=== PATIENT | female | born 1955 | race Caucasian/White ===

== ENCOUNTER → 2018-12-24 | Outpatient (CLI) | payer MEDICAID, SELFPAY ==
--- NOTE | 2018-12-24 09:20 | MRI_ITS ---
STUDY: MRI BRAIN WITH AND WITHOUT CONTRAST REASON FOR EXAM: Female, 63 years old. Right-sided hearing loss and facial droop. TECHNIQUE: Standardized multiplanar fat and water weighted pulse sequences were obtained. 18 IV Gadavist was administered for the contrast portion of the examination. COMPARISON: None. FINDINGS: Normal size of the ventricles and extra-axial spaces for the patient's age. There are a limited number of small white matter hyperintensities, distributed throughout the deep white matter tracts of the cerebral hemispheres, consistent with mild chronic white matter ischemic changes. Normal bilateral basal ganglia. Normal thalami. There is no extra-axial fluid accumulation. Normal flow voids within the major intracranial circulation suggesting patency by spin echo criteria. Normal venous enhancement. There is no enhancing intra-axial or extra-axial abnormality. Normal sella turcica, pituitary gland, infundibular stalk, optic chiasm and hypothalamus. Normal tectal plate and pineal gland. Normal midbrain, moira and medulla. Normal cerebellum. Normal basal cisterns. Normal bilateral temporal bones. Normal bilateral internal auditory canals. No demonstrated orbital abnormality, within the constraints of a routine brain study. Normal visualized paranasal sinuses. Normal calvarium and skull base. Normal visualized soft tissue structures. Normal visualized upper cervical spine. MRI/Brain W/WO Contrast IMPRESSION: Normal unenhanced and enhanced MRI of the brain. Mild chronic changes described above. Electronically Signed: Hussein Dumont, at 10:59 EDT Tel , Service support ,
[2018-12-24 10:11] LABS: CREATININE FINGERSTICK 0.8 mg/dL (0.55-1.02); EGFR FINGERSTICK > 60.0000 mL/min (>60)
== END | disposition home or self-care (01) ==
LOC: MRI 09:11
PROVIDERS: Family Provider Family Medicine; PCP Family Medicine; Referring Provider Otolaryngology; Visit Provider Otolaryngology
DX: H91.92 Unspecified hearing loss, left ear (principal)
CPT/HCPCS: 70553; A9575

== ENCOUNTER → 2020-10-16 07:10 | Outpatient (CLI) | payer MEDICAID, SELFPAY ==
--- NOTE | 2020-10-16 09:01 | NEURO_ITS ---
NCS and/or EMG Patient Report Ordering Doctor: Kvng Dunbar DATE OF SERVICE: 10/16/20 Indication: Bilateral hand numbness for the last year (right greater than left). No neck pain or radicular symptoms. Evaluate for entrapment neuropathy. Findings: Nerve conduction studies were performed in the right and left upper extremities. The right median motor study recording the abductor pollicis brevis showed a markedly reduced amplitude, markedly prolonged distal latency and slowed conduction velocity. The right ulnar motor study recording the abductor digiti minimi showed a normal amplitude, normal distal latency and normal conduction velocity. No conduction block or focal slowing was present across the elbow. Right median-ulnar lumbrical / interosseous motor latencies showed a prolonged median latency compared to the ulnar. The right median sensory response recording digit two showed a reduced amplitude, prolonged latency and markedly slowed conduction velocity. The right ulnar sensory response recording digit five showed a normal amplitude, latency and conduction velocity. The right radial sensory response recording over the extensor snuff box showed a normal amplitude, latency and conduction velocity. The left median motor study recording the abductor pollicis brevis showed a slightly reduced amplitude, prolonged distal latency and slowed conduction velocity. The left ulnar motor study recording the abductor digiti minimi showed a normal amplitude, normal distal latency and borderline conduction velocity in the forearm segment. Focal slowing was present across the elbow (~14m/s). Left median-ulnar lumbrical / interosseous motor latencies showed a normal median latency compared to the ulnar. The left median sensory response recording digit two showed a reduced amplitude, prolonged latency and markedly slowed conduction velocity. The left ulnar sensory response recording digit five showed a slightly reduced amplitude, normal latency and normal conduction velocity. The left radial sensory response recording over the extensor snuff box showed a normal amplitude, latency and conduction velocity. Needle EMG of the right upper extremity and cervical paraspinal muscles was performed. Active denervation was seen in the abductor pollicis brevis muscle. A brief complex repetitive discharge was seen in the lower cervical paraspinal muscles. Motor units in the abductor pollicis brevis were long duration, markedly polyphasic with markedly reduced recruitment. All other muscles d emonstrated normal motor unit morphology, activation and recruitment patterns. Needle EMG of the left upper extremity and cervical paraspinal muscles was performed. No denervation was seen in any muscle. Motor units in the first dorsal interosseous were markedly large amplitude, long duration with reduced recruitment. Motor units in the abductor pollicis brevis were mildly large amplitude, long duration with normal recruitment. All other muscles demonstrated normal motor unit morphology, activation and recruitment patterns. Impression: This is a markedly abnormal study. 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 2.) A mild to moderate median neuropathy across the left wrist without ongoing denervation. 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 Finally, the rare complex repetitive discharge seen in the right cervical paraspinal muscles is of unclear significance. There is no definitive evidence of a superimposed cervical radiculopathy in either upper extremity. Eric Arenas D.O.
== END ==
PROVIDERS: PCP Family Medicine; Referring Provider Orthopaedic Surgery; Visit Provider Orthopaedic Surgery
DX: G56.03 Carpal tunnel syndrome, bilateral upper limbs (principal)
CPT/HCPCS: 95886; 95913